=== PATIENT | female | born 1945 | race Caucasian/White ===

== ENCOUNTER 2021-11-27 06:56 | Outpatient (CLI) | payer MEDICARE, OTHER | END 2021-11-27 23:59 | disposition home or self-care (01) | LOC: LAB 06:56 | PROVIDERS: ATTEND Dermatology MOHS-Micrographic Surgery | DX: Z01.812 Encounter for preprocedural laboratory examination (principal); Z20.822 Contact with and (suspected) exposure to COVID-19 ==

== ENCOUNTER 2021-11-30 07:22 | Day surgery (SDC) | payer MEDICARE, OTHER ==
[2021-11-30] MEDS ORDERED: PROPOFOL 200 MG/20 ML BOTTLE IV ONE (07:23)
[2021-11-30] MEDS ORDERED: LIDOCAINE-MPF 2% 5 ML VIAL IJ ONE (07:23)
[2021-11-30] MEDS ORDERED: FENTANYL CITRATE 100 MCG/2 ML AMPUL ONE (08:04)
[2021-11-30] MEDS ORDERED: CYCLOPENTOLATE 1% OPHT DROP 2 ML BOTTLE ONE (08:06)
[2021-11-30 08:07] LABS: HEMATOCRIT 42.6 % (31.2-41.9); MEAN CORPUSCULAR HEMOGLOBIN 30.6 uug (24.7-32.8); MEAN CORPUSCULAR VOLUME 92.7 fL (75.5-95.3); PLATELET COUNT (AUTO) 277 K/uL (179-408)
[2021-11-30 08:11] LABS: *BILIRUBIN,URIN NEGATIVE (NEGATIVE); *CLARITY,URINE CLEAR (CLEAR); *COLOR,URINE YELLOW (YELLOW); *KETONES,URINE NEGATIVE (NEGATIVE); *UROBILINOGEN,URINE 0.2 E.U./dl (NORMAL); LEUKOCYTE ESTERASE ,URINE NEGATIVE (NEGATIVE); NITRITE, URINE NEGATIVE (NEGATIVE); UGLUCOSE NEGATIVE (NEGATIVE)
[2021-11-30] MEDS ORDERED: KETOROLAC 0.5% OPHT DROP 3 ML BOTTLE ONE (08:19)
[2021-11-30] MEDS ORDERED: CIPROFLOXACIN 0.3% OPHT DROP 2.5 ML BOTTLE ONE (08:19)
[2021-11-30 08:20] LABS: CREATININE 0.6 mg/dL (0.6-1.3); POTASSIUM 5.7 mmol/L (3.5-5.1)
[2021-11-30] MEDS ORDERED: TETRACAINE HCL 0.5% OPHT DROP 2 ML BOTTLE ONE ×3 (08:20→09:08)
[2021-11-30] MEDS ORDERED: PHENYLEPHRINE 2.5% OPHT DROP 2 ML BOTTLE ONE (08:20)
[2021-11-30 08:25] LABS: *BLOOD, URINE TRACE (NEGATIVE)
[2021-11-30] MEDS ORDERED: NEO/POLYMYX B/DEXAME OPHT OINT 3.5 GM TUBE ONE (09:07)
[2021-11-30] MEDS ORDERED: LIDOCAINE HCL-MPF 1% 5 ML VIAL ONE (09:08)
[2021-11-30] MEDS ORDERED: BUPIVACAINE PF 0.5% 30 ML VIAL ONE (09:08)
[2021-11-30] MEDS ORDERED: BALANCED SALT IRRIG SOLN COMB2 15 ML IRRIG.SOLN ONE (09:54)
[2021-11-30] MEDS ORDERED: PILOCARPINE 2% ONE (10:14)
[2021-11-30] MEDS ORDERED: BALANCED SALT IRRIG SOLN COMB1 500 ML, EPINEPHRINE-PF 1:1000 0.5 MG IO ONE ×2 (11:00)
[2021-11-30 14:42] LABS: RBC,URINE 0-3 /HPF (0-3); WBC,URINE 0-3 /HPF (0-3)
[2021-11-30 14:43] LABS: BACTERIA,URINE FEW /HPF (NONE SEEN); MUCUS,URINE FEW /LPF (0-FEW); SQUAMOUS EPITHELIAL CELL,UR FEW /HPF (NONE SEEN)
== END 2021-11-30 12:30 | disposition home or self-care (01) ==
LOC: DS 07:22
PROVIDERS: ATTEND Dermatology MOHS-Micrographic Surgery
DX: E11.36 Type 2 diabetes mellitus with diabetic cataract (principal); H25.89 Other age-related cataract; E66.9 Obesity, unspecified; I10 Essential (primary) hypertension; E78.00 Pure hypercholesterolemia, unspecified; M19.90 Unspecified osteoarthritis, unspecified site; Z79.82 Long term (current) use of aspirin; Z79.84 Long term (current) use of oral hypoglycemic drugs; Z79.899 Other long term (current) drug therapy; Z98.890 Other specified postprocedural states
CPT/HCPCS: 36415; 71045; 85025; 85730; 93005; A4217; A4663; J0171; J3010; J3490; J7030; V2632